=== PATIENT | female | born 1980 | race Caucasian/White ===

== ENCOUNTER 2017-06-05 20:02 | Emergency (ER) | payer OTHER ==
[2017-06-05 22:16] LABS: Albumin 4.7 g/dL (3.2-5.2); BUN/Creatinine Ratio 20.3 (8-20); Calcium 9.9 mg/dL (8.6-10.3); Globulin 3.3 g/dL (2-4); Potassium 3.4 mmol/L (3.5-5.0); Total Bilirubin 0.8 mg/dL (0.2-1.0)
[2017-06-05 22:18] LABS: Add Diff/Slide Review? Slide Review Added; Comments Flag Yes; Hematocrit 30 % (35-47); Mean Corpuscular HGB Conc 30 g/dl (31-36); Mean Corpuscular Hemoglobin 18 pg (27-31); Mean Corpuscular Volume 61 fL (80-97); Mean Platelet Volume 10 um3 (7.4-10.4); Red Blood Count 4.97 10^6/ul (4.0-5.4); Red Cell Distribution Width 18 % (10.5-15)
[2017-06-05 23:11] LABS: Add Path Review? YES; Hypochromasia 2+; Microcytosis 2+
[2017-06-05 23:26] LABS: Urine Bacteria 1+ (Absent); Urine Bilirubin Negative (Negative); Urine Glucose Negative (Negative); Urine Nitrite Negative (Negative)
[2017-06-06] MEDS ORDERED: Ketorolac INJ* 30 MG/ML 1 ML VIAL IV PUSH ONE (00:12)
[2017-06-06] MEDS ORDERED: Cephalexin CAP* 500 MG PO ONE (00:12)
[2017-06-06] MEDS ORDERED: diPHENhydraMINE IV* 50 MG/ML 1 ml VIAL (BENADRYL) IV ONE (00:12)
[2017-06-06] MEDS ORDERED: PROCHLORPERAZINE INJ 5 MG/ML 2 ML VIAL IV ONE (00:12)
[2017-06-06] MEDS: NS 0.9% 1000 ML* 2,000 ML IV ONE (00:43)
--- NOTE | 2017-06-06 02:37 | ED ---
Gadiel Quiros Rebecca, scribed for Yrn Flores MD on 06/05/17 at 2344 . Complex/Multi-Sys Presentation - HPI Summary HPI Summary: Pt is a 37 y/o F who presents to ED c/o dizziness and RIVERA. Pt has been experiencing intermittent episodes of RIVERA for the last 4-6 months, presenting about every other month. Current RIVERA is located in the bilateral temporal regions , is moderate, ranked 6/10 and characterized as pressure. Dizziness has been intermittent, presenting every other day. Pt is unable to characterize the dizziness. Sx aggravated and alleviated by nothing. Additionally c/o mild abdominal pain, nausea, fever, chills and fatigue. Denies cough, dysuria, ear pain and sore throat. No recent sick contacts. - History Of Current Complaint Chief Complaint: EDGeneral Hx Obtained From: Patient Onset/Duration: Lasting Weeks Timing: Intermittent, Lasting: Severity Currently: Moderate - 6/10 Location: Pain At: - Temporal RIVERA Character: Pressure Aggravating Factor(s): Nothing Alleviating Factor(s): Nothing Associated Signs And Symptoms: Positive: Dizziness, Headache, Nausea, Abdominal Pain - mild, Fever - Allergies/Home Medications Allergies/Adverse Reactions: Allergies Allergy/AdvReac Type Severity Reaction Status Date / Time No Known Allergies Allergy Verified 06/05/17 20:10 PMH/Surg Hx/FS Hx/Imm Hx Endocrine/Hematology History: Denies: Hx Diabetes Cardiovascular History: Denies: Hx Hypertension Sensory History: Denies: Hx Legally Blind - Surgical History Surgery Procedure, Year, and Place: c-sections 2000,2003,2004 Infectious Disease History: No Infectious Disease History: Denies: Traveled Outside the [place] in Last 30 Days - Family History Known Family History: Negative: Diabetes - Social History Alcohol Use: None Substance Use Type: Reports: None Smoking Status (MU): Never Smoked Tobacco Review of Systems Positive: Fever, Chills, Fatigue Negative: Sore Throat, Ear Ache Negative: Cough Positive: Abdominal Pain, Nausea Negative: dysuria Neurological: Other - Dizziness Positive: Headache All Other Systems Reviewed And Are Negative: Yes Physical Exam - Summary Physical Exam Summary: Appearance: Well-appearing, Well-nourished, NAD Skin: Warm Eyes: Normal ENT: Normal, no tonsillar enlargement, no sinus tenderness to percussion Neck: Supple, nontender, minimal right anterior cervical lymphadenopathy, normal ROM Respiratory: Clear to auscultation Cardiovascular: Normal Abdomen: Soft, nontender Bowel: Present Musculoskeletal: Normal, Strength/ROM Intact Neurological: Normal, A&Ox3 Psychiatric: Normal Triage Information Reviewed: Yes Vital Signs On Initial Exam: Initial Vitals Temp Pulse Resp BP Pulse Ox 98.8 F 102 14 161/85 100 06/05/17 20:06 06/05/17 20:06 06/05/17 20:06 06/05/17 20:06 06/05/17 20:06 Vital Signs Reviewed: Yes - [place] Coma Scale Coma Scale Total: 15 Diagnostics - Vital Signs Vital Signs Temp Pulse Resp BP Pulse Ox 06/05/17 21:45 97.6 F 97 16 145/93 99 06/05/17 20:06 98.8 F 102 14 161/85 100 - Laboratory Lab Results: Lab Results 06/05/17 06/05/17 06/05/17 Range/Units 21:41 21:41 23:10 WBC 12.0 H (3.5-10.8) 10^3/ul RBC 4.97 (4.0-5.4) 10^6/ul Hgb 9.0 L (12.0-16.0) g/dl Hct 30 L (35-47) % MCV 61 L (80-97) fL MCH 18 L (27-31) pg MCHC 30 L (31-36) g/dl RDW 18 H (10.5-15) % Plt Count 362 (150-450) 10^3/ul MPV 10 (7.4-10.4) um3 Neut % (Auto) 81.4 (38-83) % Lymph % (Auto) 12.7 L (25-47) % [place] % (Auto) 4.8 (1-9) % Eos % (Auto) 0.2 (0-6) % Baso % (Auto) 0.9 (0-2) % Absolute Neuts (auto) 9.7 H (1.5-7.7) 10^3/ul Absolute Lymphs (auto) 1.5 (1.0-4.8) 10^3/ul Absolute Monos (auto) 0.6 (0-0.8) 10^3/ul Absolute Eos (auto) 0 (0-0.6) 10^3/ul Absolute Basos (auto) 0.1 (0-0.2) 10^3/ul Absolute Nucleated RBC 0 10^3/ul Nucleated RBC % 0 Normal RBC Morphology Not Reportable Hypochromasia 2+ Microcytosis 2+ Elliptocytes 1+ Hem Pathologist Commnt Pending Sodium 132 L (133-145) mmol/L Potassium 3.4 L (3.5-5.0) mmol/L Chloride 98 L (101-111) mmol/L Carbon Dioxide 25 (22-32) mmol/L Anion Gap 9 (2-11) mmol/L BUN 13 (6-24) mg/dL Creatinine 0.64 (0.51-0.95) mg/dL Est GFR ( Amer) 135.0 (>60) Est GFR (Non-Af Amer) 105.0 (>60) BUN/Creatinine Ratio 20.3 H (8-20) Glucose 110 H (70-100) mg/dL Calcium 9.9 (8.6-10.3) mg/dL Total Bilirubin 0.80 (0.2-1.0) mg/dL AST 17 (13-39) U/L ALT 12 (7-52) U/L Alkaline Phosphatase 70 (34-104) U/L Total Protein 8.0 (6.4-8.9) g/dL Albumin 4.7 (3.2-5.2) g/dL Globulin 3.3 (2-4) g/dL Albumin/Globulin Ratio 1.4 (1-3) Urine Color Yellow Urine Appearance Clear Urine pH 5.0 (5-9) Ur Specific [place] 1.028 (1.010-1.030) Urine Protein Negative (Negative) Urine Ketones 2+ H (Negative) Urine Blood 3+ H (Negative) Urine Nitrate Negative (Negative) Urine Bilirubin Negative (Negative) Urine Urobilinogen Negative (Negative) Ur Leukocyte Esterase Negative (Negative) Urine WBC (Auto) Trace(0-5/hpf) (Absent) Urine RBC (Auto) 1+(3-5/hpf) H (Absent) Ur Squamous Epith Cells Present H (Absent) Urine Bacteria 1+ H (Absent) Urine Glucose Negative (Negative) Result Diagrams: 06/05/17 21:41 06/05/17 21:41 Lab Statement: Any lab studies that have been ordered have been reviewed, and results considered in the medical decision making process. - Radiology CXR Xray Interpretation: No Acute Changes Radiology Interpretation Completed By: ED Physician Re-Evaluation - Re-Evaluation First Eval Re-Evaluation Time: 02:13 Change: Improved Complex Multi-Symp Course/Dx Assessment/Plan: pt aware of anemia, cxr neg for any acute path, feels better after fluids, instructed to fu with pmd, agrees to and undestnads dc instructions. - Diagnoses Provider Diagnoses: Headache Discharge - Discharge Plan Condition: Improved Disposition: HOME Patient Education Materials: Acute Headache (ED), Anemia (ED) Referrals: Torito Khan MD [Primary Care Provider] - Additional Instructions: PLEASE MAKE AN APPOINTMENT FIRST THING IN THE MORNING TO BE SEEN BY YOUR PRIMARY CARE DOCTOR WITHIN 1 WEEK PLEASE RETURN TO THE EMERGENCY ROOM IF YOU HAVE ANY WORSENING OR CONCERNING SYMPTOMS The documentation as recorded by the Gadiel dalal Rebecca accurately reflects the service I personally performed and the decisions made by me, Yrn Flores MD.
[2017-06-06 02:49] VITALS: BP 122/74
--- NOTE | 2017-06-06 07:53 | RAD ---
INDICATION: Headache, chills and dizziness x2 months COMPARISON: None TECHNIQUE: PA and lateral views of the chest were obtained. FINDINGS: The heart and mediastinum are normal in size and contour. The lungs are grossly clear. There is no evidence of large pleural effusion. Visualized bones are normal for the patient's age. There is no radiographic evidence of free air beneath the diaphragm IMPRESSION: No radiographic evidence of acute cardiopulmonary disease.
--- NOTE | 2017-06-08 09:08 | ED ---
Progress - Progress Note Progress Note: Pt's prelim urine cx reveals 75-100,000 klebsiella penum - started on keflex ( appropriate) - f/u w/ PCP as directed. Will contact pt w/ final results if changes in tx are necessary. Re-Evaluation - Re-Evaluation First Eval Re-Evaluation Time: 02:13 Change: Improved Course/Dx - Diagnoses Provider Diagnoses: Headache
== END 2017-06-06 02:47 | disposition home or self-care (01) ==
LOC: ED 20:02
DX: R51 Headache (principal); R10.9 Unspecified abdominal pain; R11.0 Nausea
CPT/HCPCS: 36415; 71020; 80053; 81003; 81015; 85025; 85060; 87077; 87086; 87186; 99283; A9270-GY; J0780; J1200; J1885

== ENCOUNTER 2017-12-18 10:01 | Emergency (ER) | payer OTHER ==
[2017-12-18 10:14] VITALS: BP 138/78
[2017-12-18] MEDS ORDERED: Meclizine TAB* 12.5 MG PO ONE (10:38)
--- NOTE | 2017-12-18 15:35 | UC ---
Cyril Quiros Nikita, scribed for Sahil Beaulieu MD on 12/18/17 at 1040 . Ear Complaint HPI - HPI Summary HPI Summary: This patient is a 37 year old F presenting to [facility] with a chief complaint of R ear pain since 12/14/17. The patient rates the pain 0/10 in severity. Symptoms aggravated by nothing. Symptoms alleviated by nothing. Patient reports intermittent chills and dizziness (room is spinning, aggravated by getting up and trying to ambulate) since today and urinary frequency. Patient denies dysuria. The patient has a family hx of DM and would like a finger stick to see if she is as well. She also wants to check for a UTI. - History of Current Complaint Chief Complaint: UCGeneralIllness Stated Complaint: PLUGGED EAR, DIZZY, BACK PAIN Time Seen by Provider: 12/18/17 10:17 Hx Obtained From: Patient Hx Last Menstrual Period: 12/11/17 Onset/Duration: Sudden Onset, Lasting Days, Still Present Severity Currently: None Pain Intensity: 0 Pain Scale Used: 0-10 Numeric Aggravating Factors: Nothing Alleviating Factors: Nothing - Allergies/Home Medications Allergies/Adverse Reactions: Allergies Allergy/AdvReac Type Severity Reaction Status Date / Time No Known Allergies Allergy Verified 12/18/17 10:09 Home Medications: Home Medications Acetaminophen [Tylophen] 1 tab PO ONCE PRN 12/18/17 [History Confirmed 12/18/17] PMH/Surg Hx/FS Hx/Imm Hx Cardiovascular History: Other Other Cardiovascular History: NO HTN, CAD Respiratory History: Other Other Respiratory History: No asthma - Surgical History Surgical History: Yes Surgery Procedure, Year, and Place: c-sections 2000,2003,2004 - Family History Known Family History: Positive: Diabetes - Social History Alcohol Use: None Substance Use Type: None Smoking Status (MU): Never Smoked Tobacco Household Exposure Type: Cigarettes Review of Systems Constitutional: Chills - intermittent ENT: Ear Ache - right ear pain Genitourinary: Frequency, Other - deneis dysuria Neurological: Other - dizziness (room is spinning, aggravated by getting up and trying to ambulate) All Other Systems Reviewed And Are Negative: Yes Physical Exam - Summary Physical Exam Summary: VITAL SIGNS: Reviewed. GENERAL: ~Patient is a well-developed and nourished FEMALE who is lying comfortable in the stretcher. ~Patient is not in any acute respiratory distress. HEAD AND FACE: Normocephalic EYES: PERRLA, EOMI x 2. EARS: Hearing grossly intact. R TM is red and bulging. MOUTH: Oropharynx within normal limits. NECK: Supple, trachea is midline, no adenopathy, no JVD, no carotid bruit. CHEST: Symmetric, no tenderness at palpation LUNGS: Clear to auscultation bilaterally. No wheezing or crackles. CVS: Regular rate and rhythm, S1 and S2 present, no murmurs or gallops appreciated. ABDOMEN: Soft, non-tender. Bowel sounds are normal. No abdominal abnormal pulsations. EXTREMITIES: Full ROM in all major joints, no edema, no cyanosis or clubbing. NEURO: Alert and oriented x 3. No acute neurological deficits. Speech is normal and follows commands. Neurological exam is normal. Good and steady walk. SKIN: Dry and warm Triage Information Reviewed: Yes Vital Signs: Initial Vital Signs Temp 97.7 F 12/18/17 10:10 Pulse 99 12/18/17 10:10 Resp 16 12/18/17 10:10 BP 138/78 12/18/17 10:10 Pulse Ox 100 12/18/17 10:10 Vital Signs Reviewed: Yes Re-Evaluation - Re-Evaluation First Eval Re-Evaluation Time: 10:57 Comment: Discussed results and discharge plan with the patient. Ear Complaint Course/Dx - Course Course Of Treatment: This patient is a 37 year old F presenting to [facility] with a chief complaint of R ear pain since 12/14/17. I believe the patient has vertigo secondary to otitis media, and I have no suspicion of any intracranial pathology since onset of symptoms was today. She is ambulating well except that she is dizzy when she tries to get up from a chair. She is neurologically intact , therefore she will be given rx for antivert and Augmentin. She was instructed that if her sx are not getting better or they are getting worse, to go to the ED or come back to for possible CT of her brain. She understands and agrees. In triage she reported back pain but she declines at this moment and just wants to check for a UTI. Finger stick is 120. UTI is negative. All questions were answered to patient satisfaction. There were no further complaints or concerns. - Differential Dx/Diagnosis Provider Diagnoses: otitis media, vertigo Discharge - Sign-Out/Discharge Documenting (check all that apply): Discharge/Admit/Transfer - Discharge Plan Condition: Stable Disposition: HOME Prescriptions: Amoxicillin/Clavulanate TAB* [Augmentin TAB 875*] 875 mg PO BID #20 tab Meclizine TAB* [Antivert 12.5 TAB*] 25 mg PO TID PRN #20 tab PRN Reason: Vertigo Patient Education Materials: Vertigo (ED), Ear Infection (ED) Referrals: Torito Khan MD [Primary Care Provider] - Additional Instructions: Take medications as instructed Increase your fluid intake Return to the if symptoms worsen - Billing Disposition and Condition Condition: STABLE Disposition: HOME The documentation as recorded by the Cyril dalal Nikita accurately reflects the service I personally performed and the decisions made by , Sahil Beaulieu MD.
== END 2017-12-18 11:00 | disposition home or self-care (01) ==
LOC: UCEAST 10:01
DX: H66.91 Otitis media, unspecified, right ear (principal); R42 Dizziness and giddiness; R35.0 Frequency of micturition
CPT/HCPCS: 81003; 99212; A9270-GY; G0463

== ENCOUNTER 2018-01-24 16:25 | Emergency (ER) | payer OTHER ==
--- NOTE | 2018-01-24 17:58 | ED ---
Upper Extremity Pain - HPI Summary HPI Summary: Complains of right wrist pain status post mechanical fall today at 10:30am. Denies loss of sensation or function distally, head injury, LOC, N/V, change in vision, neck pain, back pain, bilateral lower extremity pain, left upper extremity pain. - History of Current Complaint Chief Complaint: EDExtremityUpper Stated Complaint: RT WRIST INJURY Time Seen by Provider: 01/24/18 17:30 Hx Obtained From: Patient Hx Last Menstrual Period: 12/11/17 Mechanism Of Injury: Fall From A Standing Position Onset/Duration: Started Hours Ago Timing: Constant Severity Initially: Moderate Severity Currently: Moderate Pain Location: Wrist Character: Aching, Throbbing Aggravating Factor(s): Movement Alleviating Factor(s): Ice Associated Signs & Symptoms: Positive: Negative - Risk Factors Compartment Syndrome Risk Factors: Pain - Allergies/Home Medications Allergies/Adverse Reactions: Allergies Allergy/AdvReac Type Severity Reaction Status Date / Time cephalexin [From Keflex] AdvReac Vomiting Verified 01/24/18 16:30 pseudoephedrine AdvReac Nausea And Verified 01/24/18 16:30 [From Sudafed] Vomiting Home Medications: Home Medications Loratadine [Claritin] 10 mg PO DAILY 01/24/18 [History Confirmed 01/24/18] PMH/Surg Hx/FS Hx/Imm Hx Endocrine/Hematology History: Denies: Hx Diabetes, Hx Sickle Cell Disease Cardiovascular History: Denies: Hx Hypertension Respiratory History: Denies: Hx Lung Cancer History: Denies: Hx Dialysis Sensory History: Reports: Hx Contacts or Glasses Denies: Hx Legally Blind Opthamlomology History: Denies: Hx Legally Blind EENT History: Denies: Hx Deafness - Surgical History Surgery Procedure, Year, and Place: c-sections 2000,2003,2005 Infectious Disease History: No Infectious Disease History: Denies: Traveled Outside the [place] in Last 30 Days - Family History Known Family History: Positive: Diabetes - Social History Alcohol Use: None Substance Use Type: Reports: None Smoking Status (MU): Never Smoked Tobacco Review of Systems Constitutional: Negative Eyes: Negative ENT: Negative Cardiovascular: Negative Respiratory: Negative Gastrointestinal: Negative Genitourinary: Negative Positive: Other Skin: Negative Neurological: Negative Psychological: Normal All Other Systems Reviewed And Are Negative: Yes Physical Exam - Summary Physical Exam Summary: Pain in her right wrist. Tender to palpation. Positive snuffbox tenderness. Pain with flexion and extension of right wrist. PMS intact distally. No ecchymosis, swelling, deformity, erythema, extra warmth noted to right wrist or hand. Normal flexion and extension of right elbow without pain. Triage Information Reviewed: Yes Vital Signs On Initial Exam: Initial Vitals Temp Pulse Resp BP Pulse Ox 98.7 F 112 15 124/78 100 01/24/18 16:27 01/24/18 16:27 01/24/18 16:27 01/24/18 16:27 01/24/18 16:27 Vital Signs Reviewed: Yes Appearance: Positive: Well-Appearing Skin: Positive: Warm Head/Face: Positive: Normal Head/Face Inspection Eyes: Positive: Normal Neck: Positive: Supple Respiratory/Lung Sounds: Positive: Clear to Auscultation Cardiovascular: Positive: Normal Abdomen Description: Positive: Nontender Musculoskeletal: Positive: Other Neurological: Positive: Normal Psychiatric: Positive: Normal AVPU Assessment: Alert - Nidia Coma Scale Best Eye Response: 4 - Spontaneous Best Motor Response: 6 - Obeys Commands Best Verbal Response: 5 - Oriented Coma Scale Total: 15 Procedures - Splinting 1 Location: rt wrist Hand-Made Type: orthoglass Splint: sugar-tong Pre-Proc Neuro Vasc Exam: normal Post-Proc Neuro Vasc Exam: normal Diagnostics - Vital Signs Vital Signs Temp Pulse Resp BP Pulse Ox 01/24/18 16:27 98.7 F 112 15 124/78 100 - Laboratory Lab Statement: Any lab studies that have been ordered have been reviewed, and results considered in the medical decision making process. - Radiology wrist Xray Interpretation: Positive (See Comments) - Comminuted nondisplaced fracture of the distal radius Radiology Interpretation Completed By: Radiologist Course/Dx - Course Course Of Treatment: Complains of right wrist pain status post mechanical fall today at 10:30am. Denies loss of sensation or function distally, head injury, LOC, N/V, change in vision, neck pain, back pain, bilateral lower extremity pain , left upper extremity pain. PE: Pain in her right wrist. Tender to palpation. Positive snuffbox tenderness. Pain with flexion and extension of right wrist. PMS intact distally. No ecchymosis, swelling, deformity, erythema, extra warmth noted to right wrist or hand. Normal flexion and extension of right elbow without pain. X-ray positive for distal radius fracture. Sugar tong placed here in the ED. Follow-up with orthopedics - Diagnoses Provider Diagnoses: Distal radius fracture, right Discharge - Sign-Out/Discharge Documenting (check all that apply): Discharge/Admit/Transfer - Discharge Plan Condition: Stable Disposition: HOME Prescriptions: HYDROcodone/ACETAMIN 5-325 MG* [[place] 5-325 TAB*] 1 tab PO Q6H PRN 2 Days #8 tab MDD 4-5 taBS PRN Reason: Pain Patient Education Materials: Wrist Fracture in Adults (ED), Scaphoid Fracture ( ED) Referrals: Torito Khan MD [Primary Care Provider] - Laura Warner MD [Medical Doctor] - Additional Instructions: Follow-up with orthopedics Dr. Warner. Return to the ED for any new or worsening symptoms - Billing Disposition and Condition Condition: STABLE Disposition: Home
--- NOTE | 2018-01-24 18:03 | RAD ---
HISTORY: fall COMPARISONS: None VIEWS: 4, Frontal, lateral, oblique, and scaphoid deviation views of the right wrist FINDINGS: BONE DENSITY: Normal. BONES: There is comminuted nondisplaced fracture of the distal radial metaphysis with articular extension. JOINTS: There is no arthropathy. ALIGNMENT: There is no dislocation. SOFT TISSUES: Unremarkable. OTHER FINDINGS: None. IMPRESSION: COMMINUTED NONDISPLACED FRACTURE OF THE DISTAL RADIUS
[2018-01-24] MEDS ORDERED: HYDROcodone/ACETAMIN 5-325 MG* 1 TAB PO ONE (18:19)
[2018-01-24] MEDS ORDERED: Ibuprofen TAB* 600 MG PO ONE (20:34)
[2018-01-24 21:02] VITALS: BP 145/79
== END 2018-01-24 20:45 | disposition home or self-care (01) ==
LOC: ED 16:25
DX: S52.501A Unspecified fracture of the lower end of right radius, initial encounter for closed fracture (principal); M25.531 Pain in right wrist; W19.XXXA Unspecified fall, initial encounter; Y92.9 Unspecified place or not applicable
CPT/HCPCS: 99282; A9270-GY